=== PATIENT | female | born 1955 | race Caucasian/White ===

== ENCOUNTER 2018-01-16 08:12 | Day surgery (SDC) | payer MEDICARE | END 2018-01-16 09:00 | disposition home or self-care (01) | LOC: CATHLABREC 08:12 → MRI 08:12 → CATHLABREC 09:00 → EDSTATUS 09:30 | PROVIDERS: ATTEND Specialist | DX: M50.80 Other cervical disc disorders, unspecified cervical region (principal); Z53.8 Procedure and treatment not carried out for other reasons ==

== ENCOUNTER 2018-01-24 08:55 | Day surgery (SDC) | payer MEDICARE ==
[2018-01-24] MEDS ORDERED: NACL 0.9% 1000 ML 1,000 ML ONE (09:32)
--- NOTE | 2018-01-24 09:41 | Anesthesia Consultation ---
Anesthesia Consult and Med Hx Date of service: 01/24/18 - Airway Anesthetic Teeth Evaluation: Good, Crowns (upper front teeth) ROM Head & Neck: Adequate Mental/Hyoid Distance: Adequate Mallampati Class: Class II Intubation Access Assessment: Probably Good - Pre-Operative Health Status ASA Pre-Surgery Classification: ASA2 Proposed Anesthetic Plan: MAC - Cardiovascular System Hx Hypertension: Yes - Central Nervous System Hx Back Pain: Yes (neck pain) Hx Psychiatric Problems: Yes (anxiety) - Hematic Hx Anemia: No - Other Systems Hx Cancer: No
--- NOTE | 2018-01-24 09:44 | Anesthesia Day of Surgery ---
Anesthesia Day of Surgery - Day of Surgery Patient Examined: Yes Patient H&P Reviewed: Yes Patient is NPO: Yes
[2018-01-24] MEDS ORDERED: DIPRIVAN 10 MG/ML IV ONE ×3 (09:46)
[2018-01-24] MEDS ORDERED: VERSED ONE (09:46)
[2018-01-24 14:02] VITALS: BP 136/88
--- NOTE | 2018-01-25 07:17 | Magnetic Resonance Report ---
MRI scan of cervical spine: History: Left C5 HNP. Technique: Multiplanar, multisequence images were obtained without contrast injection. Findings: The cervicomedullary junction is at upper causes appears normal. Normal cervical lordosis. Normal pre-and paravertebral soft tissue. Normal height and signal intensity of vertebral bodies. Decrease in height and signal intensity of C4-C5, C5-C6 and C6-C7 secondary to cervical spondylosis. C1-C2. Normal. C2-C3 appear normal. C3 C4. Mild right neural foramina narrowing secondary to disc osteophyte complex. The left neural foramina appears normal. No central canal spinal stenosis. C4-C5. Moderate to severe bilateral neural foraminal narrowing secondary to disc osteophyte complex and uncovertebral joint hypertrophy and facet joint hypertrophy. Mild central canal spinal stenosis. C5-C6. Severe left neuroforaminal narrowing secondary to disc osteophyte complex. Mild central canal spinal stenosis. Normal right neural foramina. C6-C7. No significant neural foramina narrowing or central canal stenosis. Disc osteophyte complex and facet joint hypertrophy is noted. No central canal spinal stenosis. No evidence of spinal cord edema or hemorrhage. Impression: Multilevel neural foramina narrowing and central spinal stenosis as detailed above. No cord edema or hemorrhage.
== END 2018-01-24 11:40 | disposition home or self-care (01) ==
LOC: MRI 08:55 → CATHLABREC 08:55 → EDSTATUS 09:00 → CATHLABREC 11:40
PROVIDERS: ATTEND Specialist
DX: M48.02 Spinal stenosis, cervical region (principal); M50.21 Other cervical disc displacement, high cervical region
CPT/HCPCS: 72141; J2250; J2704; J7030

== ENCOUNTER 2018-01-31 11:14 | Outpatient (CLI) | payer MEDICARE ==
[2018-01-31 11:57] LABS: Hematocrit 40.7 % (30.3-42.9); Mean Corpuscular HGB Conc 32 % (30-34); Mean Corpuscular Hemoglobin 32 pg (28-32); Mean Corpuscular Volume 99 fl (79-97); Platelet Count 305 K/mm3 (140-440); Red Blood Count 4.12 M/mm3 (3.65-5.03); Red Cell Distribution Width 14.8 % (13.2-15.2)
[2018-01-31 12:04] LABS: Alanine Aminotransferase 13 units/L (7-56); Albumin 4.2 g/dL (3.9-5); BUN/Creatinine Ratio 21; Blood Urea Nitrogen 15 mg/dL (7-17); Calcium 9.4 mg/dL (8.4-10.2); Hemolysis Index 5
[2018-01-31 12:16] LABS: Erythrocyte Sedimentation Rate 17 mm/Hr (0-20)
== END 2018-01-31 11:15 | disposition home or self-care (01) ==
LOC: LAB 11:14
PROVIDERS: ATTEND Specialist
DX: G50.0 Trigeminal neuralgia (principal); I10 Essential (primary) hypertension
CPT/HCPCS: 36415; 80053; 85027; 85652

== ENCOUNTER 2018-03-08 10:13 | Outpatient (CLI) | payer MEDICARE | END 2018-03-08 10:14 | disposition home or self-care (01) | LOC: LAB 10:13 | PROVIDERS: ATTEND Specialist | DX: D35.2 Benign neoplasm of pituitary gland (principal); I10 Essential (primary) hypertension; F41.9 Anxiety disorder, unspecified | CPT/HCPCS: 36415; 84146; 84443 ==